=== PATIENT | male | born 1950 | race Caucasian/White ===

== ENCOUNTER → 2016-12-12 | Outpatient (CLI) | payer BC | LOC: COL.RAD 09:20 | DX: M25.452 Effusion, left hip (principal) ==

== ENCOUNTER → 2016-12-21 | Outpatient (CLI) | payer BC | LOC: COL.RAD 12:45 | DX: M25.552 Pain in left hip (principal) | CPT/HCPCS: J3301; Q9967 ==

== ENCOUNTER → 2021-10-12 | Outpatient (CLI) | payer MEDICARE, BC | LOC: COL.RAD 09:48 | DX: Z13.6 Encounter for screening for cardiovascular disorders (principal) ==

== ENCOUNTER 2024-05-24 09:04 | Emergency (ER) | payer MEDICARE, BC ==
[~2024-05-24] VITALS: Ht 172.7 cm; Wt 118.2 kg
[~2024-05-24 09:04] MED LIST: ABILIFY5 MG PO; CELEXA40 MG PO; EDARB4012.5TAB PO; FLOMAX 0.40.4 MG/CAP PO; MOBIC15 MG PO; PRILOSEC 20MG20 MG PO; RT ADVAIR 128 DISKUS IH; TYLENOL 500MG500 MG PO; VENTOLIN0.09 MG IH
[2024-05-24 09:07] VITALS: BP 112/69; TEMP 98.2
[2024-05-24] MEDS ORDERED: predniSONE 20 MG TAB PO ONE (10:45)
[2024-05-24] MEDS ORDERED: PREDNISONE20 MG PO (10:46)
[2024-05-24 11:00] VITALS: PULSE 109
== END 2024-05-24 11:00 | disposition home or self-care (01) ==
LOC: COL.ER 09:04
DX: M10.9 Gout, unspecified (principal); B35.3 Tinea pedis; B35.1 Tinea unguium; Z87.891 Personal history of nicotine dependence
CPT/HCPCS: J7512